=== PATIENT | male | born 1980 | race Caucasian/White ===

== ENCOUNTER 2017-04-15 04:33 | Emergency (ER) | payer SELFPAY ==
[2017-04-15] MEDS ORDERED: LIDOCAINE HCL 2% (50ML VIAL) INF ONE (04:38)
[2017-04-15 04:49] VITALS: BMI 34.7
[2017-04-15] MEDS ORDERED: SODIUM CHLORIDE 1,000 ML IV STA (04:49)
--- NOTE | 2017-04-15 05:12 | PDOC ---
History of Present Illness - General Stated Complaint: HAND LACERATION, INTOX Time Seen by Provider: 04/15/17 04:36 - History of Present Illness Initial Comments: 04/15/17 05:13 Mr. Matos is a 36 year old male with no significant past medical history who presents to the emergency department via ambulance after punching a window while intoxicated. The patient denies chest pain, shortness of breath, headache and dizziness. Denies fever, chills, nausea, vomit, diarrhea and constipation. Denies dysuria, frequency, urgency and hematuria. Allergies: NKDA Past surgical history: Bladder rupture repair from rugby injury Social history: Reports significant alcohol use Past History - Past Medical History Allergies/Adverse Reactions: Allergies Allergy/AdvReac Type Severity Reaction Status Date / Time No Known Allergies Allergy Verified 04/15/17 04:46 Home Medications: Ambulatory Orders NK [No Known Home Medication] 04/15/17 Review of Systems - Review of Systems Comments:: 04/15/17 05:14 GENERAL/CONSTITUTIONAL: No fever or chills. No weakness. HEAD, EYES, EARS, NOSE AND THROAT: No change in vision. No ear pain or discharge. No sore throat. CARDIOVASCULAR: No chest pain or shortness of breath RESPIRATORY: No cough, wheezing, or hemoptysis. GASTROINTESTINAL: No nausea, vomiting, diarrhea or constipation. GENITOURINARY: No dysuria, frequency, or change in urination. MUSCULOSKELETAL: +Reports injury to R hand. No joint or muscle swelling or pain. No neck or back pain. SKIN: No rash NEUROLOGIC: No headache, vertigo, loss of consciousness, or change in strength/ sensation. ENDOCRINE: No increased thirst. No abnormal weight change HEMATOLOGIC/LYMPHATIC: No anemia, easy bleeding, or history of blood clots. ALLERGIC/IMMUNOLOGIC: No hives or skin allergy. *Physical Exam - Physical Exam Comments: 04/15/17 05:15 GENERAL: Awake, alert, and fully oriented, in no acute distress HEAD: No signs of trauma, normocephalic, atraumatic EYES: PERRLA, EOMI, sclera anicteric, conjunctiva clear ENT: Auricles normal inspection, hearing grossly normal, nares patent, oropharynx clear without exudates. Moist mucosa NECK: Normal ROM, supple, no lymphadenopathy, JVD, or masses LUNGS: No distress, speaks full sentences, clear to auscultation bilaterally HEART: Regular rate and rhythm, normal S1 and S2, no murmurs, rubs or gallops, peripheral pulses normal and equal bilaterally. ABDOMEN: Soft, nontender, normoactive bowel sounds. No guarding, no rebound. No masses EXTREMITIES: +7 inch corner laceration to R hand between 1st and 2nd digits. 2nd laceration 2.5cm on hypothenar aspect of thumb. Normal range of motion, no edema. No clubbing or cyanosis. NEUROLOGICAL: Cranial nerves II through XII grossly intact. Normal speech, normal gait, no focal sensorimotor deficits SKIN: Warm, Dry, normal turgor, no rashes or lesions noted. Procedures - Laceration/Wound Repair Right Plantar Hand 1st digit Wound Length: to 2.5 cm Wound Explored: clean Wound's Depth, Shape: superficial Anesthesia: 1% Lidocaine Amount of Anesthetic (ccs): 2 Wound Debrided: minimal Wound Repaired With: Sutures Suture Size/Type: 4:0, proline Number of Sutures: 3 Right Dorsal Hand 1st digit Wound Length: 5.0 to 7.5 cm Wound Explored: clean Wound's Depth, Shape: superficial Irrigated w/ Saline: Yes Betadine Prep: No Anesthesia: 1% Lidocaine Amount of Anesthetic (ccs): 5 Wound Debrided: minimal Suture Size/Type: 4:0, proline Number of Sutures: 7 Medical Decision Making - Medical Decision Making 04/15/17 05:25 Mr. Matos presents by ambulance for evaluation of R hand after punching a window. Hand XR ordered to confirm no foreign bodies present in wound. Patient cannot remember last tetanus shot so boostrix ordered as well. 04/15/17 07:12 Wounds sutured closed. Patient resting comfortably in bed. Patient signed out to Dr. Dee. *DC/Admit/Observation/Transfer Diagnosis at time of Disposition: Laceration - Discharge Dispostion Disposition: HOME - Patient Instructions Printed Discharge Instructions: DI for Suture Removal
[2017-04-15] MEDS ORDERED: DIPHTH,PERTUSS(ACELL),TET 0.5 ML DISP.SYRIN IM ONE (05:27)
[2017-04-15 05:45] LABS: CPK 345 IU/L (39-308); TROPONIN I < 0.02 ng/ml (0.00-0.05)
[2017-04-15 07:44] VITALS: BP 118/79; PULSE 110; TEMP 98
--- NOTE | 2017-04-15 22:11 | EKG ---
Test Reason : Blood Pressure : / mmHG Vent. Rate : 136 BPM Atrial Rate : 136 BPM P-R Int : 128 ms QRS Dur : 104 ms QT Int : 310 ms P-R-T Axes : 035 028 030 degrees QTc Int : 466 ms UNDETERMINED RHYTHM CANNOT RULE OUT MAT NO PREVIOUS ECGS AVAILABLE Confirmed by JULIO ZULETA MD ([id number]) on 04/15/2017 10:10:49 PM Referred By: Confirmed By:JULIO ZULETA MD
== END 2017-04-15 08:14 | disposition home or self-care (01) ==
LOC: JER 04:33
PROC: 0JQJ0ZZ Repair Right Hand Subcutaneous Tissue and Fascia, Open Approach (ICD-10-PCS; principal; 2017-04-15)
PROC: 3E0234Z Introduction of Serum, Toxoid and Vaccine into Muscle, Percutaneous Approach (ICD-10-PCS; 2017-04-15)
PROC: 3E0337Z Introduction of Electrolytic and Water Balance Substance into Peripheral Vein, Percutaneous Approach (ICD-10-PCS; 2017-04-15)
DX: S61.411A Laceration without foreign body of right hand, initial encounter (principal); S61.011A Laceration without foreign body of right thumb without damage to nail, initial encounter; W25.XXXA Contact with sharp glass, initial encounter; Y93.89 Activity, other specified; Y92.89 Other specified places as the place of occurrence of the external cause; Q06.8 Other specified congenital malformations of spinal cord; F10.120 Alcohol abuse with intoxication, uncomplicated; Y90.8 Blood alcohol level of 240 mg/100 ml or more
CPT/HCPCS: 36415; 73110-TC-RT; 73130-TC-RT; 80307; 82553; 84484; 90715; 93005; 93010; 99285-25